=== PATIENT | female | born 1960 | race Caucasian/White ===

== ENCOUNTER 2016-07-07 22:59 | Emergency (ER) | payer BC, OTHER ==
[~2016-07-07] VITALS: Ht 157.5 cm; Wt 81.7 kg
[~2016-07-07 22:59] MED LIST: APAP500 PO; CYCLOBENZAPRINE10 MG PO; FISH OIL 1,001000 M2 PO; FLEXERIL PO; HYDROCODONE-AP1 EAC6 PO; LYRICA 50 MG50 MG PO; MELATONIN 5 MG1 EAC1 PO; MULTIVITAMINS PO; NABUMETONE 500500 M1 PO; NAPROSYN500 MG PO; NORCO 10-325 T1 EACH PO; OXYCONTIN10 M1 PO; TRAMADOL 50 MG50 MG PO; VITAMINC500 PO
[2016-07-07] MEDS ORDERED: NORFLEX100 MG PO (23:25)
[2016-07-07] MEDS ORDERED: PREDNISONE 10 M10 MG PO (23:25)
[2016-07-10] MEDS ORDERED: ZANAFLEX4 MG PO (15:01)
== END 2016-07-07 23:33 | disposition home or self-care (01) ==
LOC: ER 22:59
DX: S39.012A Strain of muscle, fascia and tendon of lower back, initial encounter (principal); G89.29 Other chronic pain; F12.10 Cannabis abuse, uncomplicated; Z87.891 Personal history of nicotine dependence; Z90.710 Acquired absence of both cervix and uterus; X58.XXXA Exposure to other specified factors, initial encounter; Y93.89 Activity, other specified; Y92.89 Other specified places as the place of occurrence of the external cause; Y99.9 Unspecified external cause status

== ENCOUNTER → 2016-07-10 | Outpatient (CLI) | payer BC, OTHER ==
[~2016-07-10] VITALS: Ht 157.5 cm; Wt 84.0 kg
[~2016-07-10] MED LIST changes: +NORFLEX100 MG PO; +PREDNISONE 10 M10 MG PO; +ZANAFLEX4 MG PO
--- NOTE | ~2016-07-10 | HPC ---
[facility] [place] [address] PAIN MANAGEMENT CONSULTATION Name: KIRKSHARI MARIETTA Room #: REG ALINE Oni#: [id number] Admission: 07/10/16 Attend Phys: Grzegorz Pitt DO Discharge: Date of : 62 Report #: [id number] THIS REPORT FOR: //name// CC: Clementina Pitt HISTORY: The patient is a 56-year-old female, prior seen last fall, was given 2 lumbar epidural injections and progressed to back surgery. She returned to the pain clinic today noting that pain has recurred without antecedent trauma and overuse. She actually went to the ER last week with ongoing pain and was given a Medrol Dosepak with some efficacy. Pain is primarily in the left hip. It is a little different than pre-surgery. Pain is exacerbated with standing, walking or bending. The patient rates her pain at 1 presently, but it gets quite problematic with standing and weightbearing. She denies any bowel or bladder continence changes or specific myelopathic symptoms. PHYSICAL EXAMINATION: GENERAL: Shows a 56-year-old female. BMI is 33.9 kilograms per meter squared. VITAL SIGNS: Show modest diastolic hypertension, 129/96. Pulse 86 and respirations 16. NEUROLOGIC: Alert and oriented to person, place and time; judged to be a reasonable historian. Rises from the chair using armrest. Tender over the left SI. Gait is modestly antalgic. Grossly positive Ewelina test on the left. Lower extremity strength is symmetric. Modestly positive straight leg raise on the left, though this is fairly nominal. Patellar and Achilles reflexes are preserved. Piriformis muscle resistance does not exacerbate pain. There were no diagnostic studies done in the ER. The patient was given Norflex and dexamethasone with the Medrol taper. ASSESSMENT: Symptomatic lumbosacral spondylosis and left sacroiliac joint dysfunction in a patient status post lumbar decompressive laminectomy. RECOMMENDATIONS: The patient was seen for prolonged visit from 1454 to 1525. Greater than 50% of this 30+ minute visit was spent reviewing medical history and intervening surgery (03/20/2015, right L4-L5 transforaminal interbody fusion, right L5-S1 transforaminal interbody fusion with L4-S1 pedicle screw and yahir fixation). We discussed the association of fusion with increased movement in the SI joint. It appears she has primarily sacroiliac mediated pain. 1. We will seek authorization for left SI joint injection under fluoroscopy. 2. Tizanidine 4 mg t.i.d. to help with [place] [address] PAIN MANAGEMENT CONSULTATION Name: SHARI BRADLEY MARIETTA Room #: REG ALINE Bunn#: [id number] Admission: 07/10/16 Attend Phys: Grzegorz Pitt DO Discharge: Date of : 62 Report #: [id number] 3. The patient to finish her prednisone wean. We will plan on moving forward with left SI joint injection, 07/25/2016. <ELECTRONICALLY SIGNED> By: Grzegorz Pitt DO 07/11/16 1138 [id number] Grzegorz Pitt DO /nt
[2016-07-10 14:26] VITALS: BP 129/96
== END ==
LOC: PAIN 07:15
DX: M47.817 Spondylosis without myelopathy or radiculopathy, lumbosacral region (principal); I10 Essential (primary) hypertension; Z87.891 Personal history of nicotine dependence

== ENCOUNTER → 2016-09-19 | Outpatient (CLI) | payer BC, OTHER ==
[~2016-09-19] VITALS: Ht 157.5 cm; Wt 81.7 kg
[~2016-09-19] MED LIST changes: +CALCIUM 500 +1 EAC5 PO; +FISH OIL500 M2 PO; +IBUPROFEN200 M1 PO
--- NOTE | ~2016-09-19 | HPC ---
[facility] [place] [address] PAIN MANAGEMENT CONSULTATION Name: SHARI BRADLEY Room #: REG ALINE Bunn#: [id number] Admission: 09/19/16 Attend Phys: Grzegorz Pitt DO Discharge: Date of : 62 Report #: [id number] THIS REPORT FOR: //name// CC: Clementina Pitt The patient is a 56-year-old female, prior seen in the pain clinic 07/10/2016. The patient has done well with occasional left SI joint injections and in fact, we sought authorization for left SI joint injection at last visit. Somewhat lost to follow up. Returns to pain clinic today. Pain continues in the left SI. Pain is exacerbated with standing, walking and bending. Positive Ewelnia test, Gaenslen's and pelvic distraction, all on the left side. Gait is tandem. Lower extremity strength is preserved. ASSESSMENT #1: Symptomatic lumbar radiculopathy, status post decompressive laminectomy, history of lumbosacral spondylosis and clinical sacroiliac joint dysfunction at this time. 1. The patient and her are getting ready to travel, camping for several weeks, [place] the [place] to [place]. She requested a short course of hydrocodone for pain should it recur on their travels. I did write for hydrocodone 5/325, dispensed 45 tablets, 1 tablet t.i.d. as needed for breakthrough pain. 2. Continue ibuprofen over the counter, though as we talked about this, the patient does note she has a little bit of gastritis. We elected to trial rotating to nabumetone 500 mg b.i.d. She thinks she took this prior to her back surgery and did well with it. Lastly, just as a general precaution, suggested that she consider taking a daily aspirin, especially when traveling to avoid blood clotting and blood pooling. ASSESSMENT #2: Symptomatic sacroiliac joint dysfunction by clinical exam, history of lumbar radiculopathy, status post decompressive laminectomy and lumbosacral spondylosis. RECOMMENDATIONS: 1. Medication changes as noted above. 2. Left SI joint injection under fluoroscopy. 3. Continue core therapy exercises, and strengthening. Follow up as needed. PROCEDURE NOTE: After written informed consent was obtained, the patient was taken to fluoroscopy suite, placed in prone position. After sterile prep and drape, skin wheal with Xylocaine was raised. A 22-gauge stylet needle was placed to contact the inferior aspect of the left SI joint. Negative aspiration was accomplished. Then, 1 mL of Omnipaque was injected, which showed spread within the joints followed with 40 mg triamcinolone plus 2 mL of 0.5% preservative-free bupivacaine. Needle was removed. The area was cleansed, [facility] [address] [place] [address] PAIN MANAGEMENT CONSULTATION Name: KIRKSHARI CHARLES MARIETTA Room #: REG ALINE Bunn#: [id number] Admission: 09/19/16 Attend Phys: Grzegorz Pitt DO Discharge: Date of : 62 Report #: [id number] Band-Aids applied. The patient monitored for an appropriate period of time, discharged in good and stable condition. <ELECTRONICALLY SIGNED> By: Grzegorz Pitt DO 09/22/16 [id number] Grzegorz Pitt DO /nt
[2016-09-19 10:44] VITALS: BP 145/98
== END | disposition home or self-care (01) ==
LOC: PAIN 07-25 11:38
DX: M53.3 Sacrococcygeal disorders, not elsewhere classified (principal); M54.16 Radiculopathy, lumbar region; M47.897 Other spondylosis, lumbosacral region; Z98.890 Other specified postprocedural states; Z79.82 Long term (current) use of aspirin; Z87.891 Personal history of nicotine dependence